=== PATIENT | male | born 1955 | race Two or more races ===

== ENCOUNTER → 2019-07-12 | Outpatient (CLI) | payer OTHER ==
[~2019-07-12] VITALS: Ht 157.5 cm; Wt 85.7 kg
[~2019-07-12] MED LIST: DERMOTIC20 ML OTIC; LIPO-FLAVONOID1 EACH PO
== END | disposition home or self-care (01) ==
LOC: OFIC 805 08:02
DX: H91.8X3 Other specified hearing loss, bilateral (principal); L29.8 Other pruritus; H93.13 Tinnitus, bilateral; R42 Dizziness and giddiness